=== PATIENT | male | born 1950 ===

== ENCOUNTER → 2020-11-07 | Outpatient (CLI) | payer MEDICARE | END | disposition home or self-care (01) | LOC: LAB SHORT 15:59 → LAB 15:59 | DX: L57.0 Actinic keratosis (principal); L81.4 Other melanin hyperpigmentation | CPT/HCPCS: 88305 ==

== ENCOUNTER 2023-07-28 11:36 | Day surgery (SDC) | payer MEDICARE, OTHER ==
[~2023-07-28] VITALS: Ht 177.8 cm; Wt 79.8 kg
[~2023-07-28 11:36] MED LIST: Aspir 8181 MG PO; Atropine Sulfate 0.1 MG/ML 10ML SYR ONE; Glycopyrrolate 0.2 MG/ML 1MLVIAL ONE; LOSARTAN POTAS100 M1 PO; Lactated Ringer's 1,000 ML IV ONE; Lidocaine 2% 5 ML SDV ONE; Lidocaine HCl/Pf 1% 5 ML VIAL ONE; Methylene Blue 1% 100 MG/10 ML VIAL ONE; Ondansetron HCl 2 MG / ML 2ML Vial ONE; ePHEDrine Sulfate 50 MG/ML 1ML Injection ONE; propofoL 50 ML IV ONE
[2023-07-28] MEDS ORDERED: Lactated Ringer's 1,000 ML IV ONE (12:08)
[2023-07-28] MEDS ORDERED: MULTI VITAMIN200 MCG (12:24)
[2023-07-28] MEDS ORDERED: TURMERIC500 M2 (12:24)
[2023-07-28] MEDS ORDERED: OMEP20ER (12:24)
[2023-07-28] MEDS ORDERED: FISH OIL 1,0001 EA10 (12:25)
[2023-07-28 14:08] VITALS: BP 136/93
== END 2023-07-28 14:16 | disposition home or self-care (01) ==
LOC: ORSCSDS 11:36
PROVIDERS: Specialist
PROC: 0DJD8ZZ Inspection of Lower Intestinal Tract, Via Natural or Artificial Opening Endoscopic (ICD-10-PCS; principal; 2023-07-28 13:30)
PROC: 0DB68ZX Excision of Stomach, Via Natural or Artificial Opening Endoscopic, Diagnostic (ICD-10-PCS; principal; 2023-07-28 13:30)
PROC: 0DB58ZX Excision of Esophagus, Via Natural or Artificial Opening Endoscopic, Diagnostic (ICD-10-PCS; principal; 2023-07-28 13:30)
DX: K21.9 Gastro-esophageal reflux disease without esophagitis (principal); K59.09 Other constipation; K44.9 Diaphragmatic hernia without obstruction or gangrene; K57.30 Diverticulosis of large intestine without perforation or abscess without bleeding; K64.8 Other hemorrhoids; B37.9 Candidiasis, unspecified; L53.9 Erythematous condition, unspecified; Z85.46 Personal history of malignant neoplasm of prostate; Z79.899 Other long term (current) drug therapy
CPT/HCPCS: J0461; J2001; J2405; J2704; J7120; Q9968